=== PATIENT | female | born 1965 | race Hispanic/Latino ===

== ENCOUNTER 2017-04-28 08:43 | Outpatient (CLI) | payer OTHER ==
--- NOTE | 2017-04-28 12:18 | MMO ---
BILATERAL DIGITAL SCREENING MAMMOGRAMS: Date: 04/28/17 This patient's mammogram was interpreted with the assistance of computer-aided detection. Comparison made with exams of 02/08/16 and 01/24/15. FINDINGS: There are scattered fibroglandular densities. No suspicious masses or calcifications are seen. Occas ional benign calcifications are again noted. IMPRESSION: BIRADS 2: Benign Finding(s) Return to annual mammographic screening. POS: TERA
== END 2017-04-28 08:44 | disposition home or self-care (01) ==
LOC: MAMMO 08:43
PROVIDERS: ATTEND Student in an Organized Health Care Education/Training Program
DX: Z12.31 Encounter for screening mammogram for malignant neoplasm of breast (principal)
CPT/HCPCS: 77067; G0202

== ENCOUNTER 2018-05-08 16:01 | Outpatient (CLI) | payer OTHER | END 2018-05-08 16:02 | disposition home or self-care (01) | LOC: BICMAMMO 16:01 | PROVIDERS: ATTEND Student in an Organized Health Care Education/Training Program | DX: Z12.31 Encounter for screening mammogram for malignant neoplasm of breast (principal) | CPT/HCPCS: 77063; 77067 ==

== ENCOUNTER 2020-08-20 12:46 | Inpatient (IN) | payer OTHER ==
[2020-08-20] MEDS ORDERED: Ketamine 50 MG/ML (10ML VIAL) ONE (13:24)
[2020-08-20] MEDS ORDERED: Ondansetron PF 4 MG/2 ML Vial ONE (13:38)
--- NOTE | 2020-08-20 14:14 | RAD ---
Exam:Left ankle 3 HISTORY: Fracture. Postreduction. COMPARISON: None FINDINGS: Evaluation of fine bony detail due to overlying cast. There is a distal fibula/lateral mall eolus fracture, medial malleolus fracture and a posterior malleolus fracture. There is mild subluxation of the tibiotalar articulation. IMPRESSION: Bimalleolar fracture with subluxation. There is external fixation casting material.
[2020-08-20 14:27] LABS: #Basophils 0.1 thou/uL (0.0-0.2); #Lymphocytes 1.1 thou/uL (1.20-3.40); #Monocytes 0.6 thou/uL (0.11-0.59); #Neutrophils 7.5 thou/uL (1.40-6.50); %Basophils 0.5 % (0.0-1.0); %Eosinophils 0.5 % (0.0-10.0); %Lymphocytes 12.2 % (21.0-51.0); %Monocytes 6.1 % (0.0-10.0); %Neutrophils 80.6 % (42.0-75.0); Hemoglobin 14.8 g/dL (12.0-16.0); Mean Corpuscular HGB CONC 33.7 g/dL (32.0-36.0); Mean Corpuscular Hemoglobin 30.8 pg (27.0-31.0); Mean Corpuscular Volume 91.3 fL (78.0-98.0); Mean Platelet Volume 8.4 fL (7.4-10.4); Platelet Count 263 thou/uL (130-400); RBC Distribution Width 11.2 % (11.5-14.5); Red Blood Cell (RBC) Count 4.81 mill/uL (4.20-5.40); White Blood Cell (WBC) Count 9.3 thou/uL (4.8-10.8)
[2020-08-20 14:51] LABS: ALT (SGPT) 25 U/L (8-55); AST (SGOT) 20 U/L (5-34); Albumin 4.4 g/dL (3.5-5.0); Alkaline Phosphatase 82 U/L (40-110); Anion Gap 15 mmol/L (10-20); BUN (Urea Nitrogen) 17 mg/dL (9.8-20.1); Bilirubin, Total 0.5 mg/dL (0.2-1.2); Calc. Creatinine Clearance 0 mL/min (70-130); Calcium 9.2 mg/dL (7.8-10.44); Carbon Dioxide 28 mmol/L (22-29); Chloride 100 mmol/L (98-107); Globulin 3.4 g/dL (2.4-3.5); Glucose 118 mg/dL (70-105); Potassium 3.8 mmol/L (3.5-5.1); Protein, Total 7.8 g/dL (6.0-8.3); Sodium 139 mmol/L (136-145)
[2020-08-20] MEDS ORDERED: Ondansetron PF 4 MG/2 ML Vial IVP PRN (15:05)
[2020-08-20] MEDS ORDERED: Dextrose 5% in Water 1,000 ML IV PRN (15:05)
[2020-08-20] MEDS ORDERED: Morphine 4 MG/ML VIAL SLOW IVP PRN (15:05)
[2020-08-20] MEDS ORDERED: hydrALAZINE 20 MG/ML VIAL SLOW IVP PRN (15:05)
[2020-08-20] MEDS ORDERED: Dextrose 50% Abboject 50 ML SYRINGE SLOW IVP PRN (15:05)
[2020-08-20] MEDS ORDERED: Cyclobenzaprine 10 MG TAB PO PRN (15:09)
[2020-08-20] MEDS ORDERED: traMADol HCl 50 MG TAB PO PRN ×2 (15:09)
--- NOTE | 2020-08-20 17:03 | RAD ---
SINGLE VIEW OF THE CHEST: Comparison: 05-24-16 History: Fall with chest pain and respiratory distress. FINDINGS: Single view of the chest shows a normal sized cardiomediastinal silhouette. There is no evidence of c onsolidation, mass or pleural effusion. No acute osseous abnormality is identified. IMPRESSION: No evidence of acute cardiopulmonary disease. POS: EAA
[2020-08-20] MEDS: Acetaminophen 500 MG TAB PO SCH ×2 (17:36→23:15)
[2020-08-20] MEDS: Ketorolac Tromethamine 30 MG/ML VIAL IVP SCH ×2 (17:37→23:15)
[2020-08-20 17:43] VITALS: BMI 25.0
[2020-08-20] MEDS: Senokot S 8.6-50 MG TAB PO SCH (20:49)
[2020-08-20] MEDS: Gabapentin 300 MG CAP PO SCH (20:50)
[2020-08-20] MEDS: Famotidine/PF 20 mg/2ml Vial SLOW IVP SCH (20:50)
--- NOTE | 2020-08-20 20:59 | HP ---
TRAUMA SURGEON: Dr. Ching. CONSULTING PHYSICIAN: Dr. Karimi. HISTORY OF PRESENT ILLNESS: The patient is a 55-year-old female who presented to the emergency department after a mechanical fall where she slipped on ice. She was found to have a left bimalleolar ankle fracture dislocation which was reduced by the emergency room physician. He did report to me that the patient received ketamine and became apneic. She was bagged for about 5 minute and started breathing on her own. At the time of my evaluation, she was awake and alert. She was maintaining her airway and her oxygen saturation was above 92%. She reported that she needed to void, otherwise her pain was well controlled. The patient denies anticoagulation use and loss of consciousness. REVIEW OF SYSTEMS: All additional 10-point review of systems negative except as indicated above. PAST MEDICAL HISTORY: Hypertension and anxiety. PAST SURGICAL HISTORY: Cholecystectomy and . SOCIAL HISTORY: The patient denies tobacco, drug, and alcohol use. MEDICATIONS: The patient reports taking her medication for anxiety and hypertension, but she could not tell me their names. ALLERGIES: NO KNOWN DRUG ALLERGIES. PHYSICAL EXAMINATION: VITAL SIGNS: Temperature 98.3, pulse 80, respirations 16, oxygen saturation 100% on room air, blood pressure 171/77. GENERAL: Well-appearing middle-aged female, lying in bed with no signs of acute distress. PULMONARY: Equal chest rise and fall clear. Breath sounds bilaterally. No signs of acute respiratory distress. CARDIAC: Regular rate and rhythm. GI: Abdomen soft, nontender, nondistended. EXTREMITIES: 2+ pulses in all extremities. Gross motor and sensation intact. Left lower extremity with splint that is clean, dry, and intact. NEUROLOGIC: GCS is 15. Pupils equal, round, reactive to light bilaterally. LABORATORY FINDINGS: White count 9.3, hemoglobin 14.8, hematocrit 43.9, platelets 263. Sodium 139, potassium 3.8, chloride 100, bicarb 28, BUN 17, creatinine 0.77, glucose 119. Total bilirubin 0.5, AST 20, ALT 25, alkaline phosphatase 82. DIAGNOSTIC FINDINGS: X-ray of the left ankle demonstrates bimalleolar fracture with subluxation. There is external fixation casting material. Chest x-ray demonstrates no evidence of acute cardiopulmonary disease. ASSESSMENT: 1. Status post mechanical fall from standing. 2. Left bimalleolar ankle fracture/dislocation. 3. History of hypertension and anxiety. PLAN: The patient will be admitted to the Trauma Service. She will go to the regular surgical nursing floor. Dr. Karimi has been consulted. He plans to take the patient to the OR in the morning. She will be n.p.o. after midnight. Receive IV hydration. Repeat blood work in the morning. The patient will likely be able to go home after surgery. She does not need rehab or skilled placement. This patient was discussed with Dr. Ching before this dictation. Job ID: [id number]
[2020-08-20 22:41] LABS: SARS-CoV-2 PCR by NAA Not Detected (NotDetected)
[2020-08-21] MEDS ORDERED: Sodium Chloride 0.9% 1,000 ML IV SCH (00:01)
[2020-08-21] MEDS ORDERED: Acetaminophen 325 MG TAB ONE (04:59)
[2020-08-21] MEDS ORDERED: Ketorolac Tromethamine 30 MG/ML VIAL ONE ×3 (04:59→14:45)
[2020-08-21] MEDS ORDERED: Acetaminophen 500 MG TAB ONE ×2 (05:02→12:26)
[2020-08-21] MEDS ORDERED: hydrALAZINE 25 MG TAB ONE (06:27)
[2020-08-21] MEDS ORDERED: Midazolam HCl 2 mg/2 ml Vial ONE (06:52)
[2020-08-21] MEDS ORDERED: Fentanyl 100 MCG/2 ML VIAL ONE (06:52)
[2020-08-21] MEDS ORDERED: Famotidine/PF 20 mg/2ml Vial ONE (07:35)
[2020-08-21] MEDS ORDERED: CEFAZOLIN 2 GM in Premix Bag 1 BAG IVPB SCH (08:00)
[2020-08-21] MEDS ORDERED: PACU-Morphine 4MG/ML VIAL SLOW IVP PRN (09:07)
[2020-08-21] MEDS ORDERED: Promethazine HCl 25 MG/ML VIAL IM PRN (09:07)
[2020-08-21] MEDS ORDERED: Promethazine HCl 25 MG/ML VIAL SLOW IVP PRN (09:07)
[2020-08-21] MEDS ORDERED: EPINEPHrine 1 MG/ML AMP ONE (09:26)
[2020-08-21] MEDS ORDERED: Bupivacaine PF 0.5% 30 ML VIAL ONE (09:26)
[2020-08-21] MEDS ORDERED: HYDROcodone/Acetaminophen 10/325 mg Tablet PO PRN ×2 (11:19)
[2020-08-21] MEDS ORDERED: Fentanyl 100 MCG/2 ML VIAL SLOW IVP PRN (11:20)
[2020-08-21] MEDS ORDERED: Ondansetron PF 4 MG/2 ML Vial IVP PRN (11:21)
--- NOTE | 2020-08-21 12:13 | OP ---
DATE OF PROCEDURE: 08/21/2020 HISTORY OF PRESENT ILLNESS: Ms. Rodriguez is a 55-year-old female, who fell, twisted her left ankle, had immediate pain and deformity in the ankle. The patient was brought to the emergency room, where x-ray showed a trimalleolar fracture-dislocation. Emergency room physicians reduced the dislocation, placed the patient in a splint. She has mild numbness over the dorsum of the left foot. No other complaints elsewhere. ALLERGIES: NONE. CURRENT MEDICATIONS: 1. Hydrochlorothiazide/lisinopril. 2. Escitalopram. PAST MEDICAL HISTORY: History of hypertension and anxiety. PAST SURGICAL HISTORY: Cholecystectomy, . PHYSICAL EXAMINATION: GENERAL: The patient is a very pleasant female, alert and oriented x3, VITAL SIGNS: The patient is afebrile, vital signs are stable. HEENT: Unremarkable for age. NEUROLOGIC: Cranial nerves 2 through 12 are grossly intact. NECK: Has good range of motion without pain. THORACIC/LUMBAR SPINE: Nontender to palpation. LUNGS: Clear bilaterally. HEART: Regular rate and rhythm. ABDOMEN: Soft and nontender. Bowel sounds positive. : Not done. EXTREMITIES: Unremarkable except for the left lower extremity. The patient has swelling, bruising around the left ankle. She is able to flex and extend her toes well. She has good peripheral pulses. IMPRESSION: Status post trimalleolar fracture-dislocation of left ankle. PLAN: The patient will require open reduction and internal fixation of the left ankle. She will need to be nonweightbearing after surgery until the fractures were healed, usually approximately 8 weeks. The patient's questions were answered and agreed to the procedure. Job ID: [id number]
--- NOTE | 2020-08-21 12:13 | OP ---
DATE OF PROCEDURE: 08/21/2020 PREOPERATIVE DIAGNOSIS: Trimalleolar fracture of the left ankle. POSTOPERATIVE DIAGNOSIS: Trimalleolar fracture of the left ankle. PROCEDURE PERFORMED: Open reduction and internal fixation, trimalleolar fracture of the left ankle. ANESTHESIA: General. DESCRIPTION OF PROCEDURE: The patient was given preoperative IV antibiotics, taken to the operating room, placed in supine position. Satisfactory general anesthesia was performed. The left lower extremity was sterilely prepped and draped in usual fashion. After exsanguination, tourniquet at the left thigh was raised to 250 mmHg. A longitudinal incision was made over the lateral aspect of the ankle over the distal fibula. The oblique fracture of the distal fibular shaft was identified, reduced and then internally fixed with a 3.5 cortical screw in a lag fashion. A three-hole Synthes 2.7 distal fibular locking plate was then placed over the distal aspect of the fibula and 3.5 cortical screw was placed in the slot in the shaft. Additional five 2.7 locking screws were placed distally. Additional 3.5 cortical screw was placed in the shaft as well as another 2.7 locking screw. This was all performed under fluoroscopic visualization, which showed good reduction of the lateral malleolus and proper placement of the plate and screws. A longitudinal incision was made on the medial aspect of the ankle over the medial malleolus. There was some slight comminution on the anterior aspect of the medial malleolus. The fracture was reduced and internally fixed using two 4.0 cannulated screws. This provided good reduction of the all three of the fractures. The posterior malleolus was in good alignment once the medial and lateral malleoli were internally fixed and did not require additional fixation. Both wounds were copiously irrigated with antibiotic solution. They were closed using 0 and 2-0 Vicryl for the deeper tissue and the skin was closed with 3-0 Rapide. The two wounds were then infiltrated with a total of 30 mL 0.5% Marcaine. Sterile dressing was applied. Tourniquet was released. The patient was placed in a boot. She was awakened, extubated, and transferred to recovery room in stable condition. ESTIMATED BLOOD LOSS: Minimal. COMPLICATIONS: None. TOURNIQUET TIME: 52 minutes. Job ID: [id number]
[2020-08-21] MEDS ORDERED: Polyethylene Glycol 3350 17 GM Packet ONE (12:25)
[2020-08-21] MEDS ORDERED: Gabapentin 300 MG CAP ONE (12:26)
[2020-08-21] MEDS ORDERED: Famotidine 20 MG TAB ONE (12:26)
[2020-08-21] MEDS ORDERED: Escitalopram Oxalate 20 mg Tablet ONE (12:30)
[2020-08-21] MEDS ORDERED: Hydrochlorothiazide 25 MG TAB ONE (12:32)
[2020-08-21] MEDS: Acetaminophen 500 MG TAB PO SCH ×4 (12:40→23:20)
[2020-08-21] MEDS: Senokot S 8.6-50 MG TAB PO SCH ×2 (12:40→20:59)
[2020-08-21] MEDS: Ketorolac Tromethamine 30 MG/ML VIAL IVP SCH ×4 (12:40→23:21)
[2020-08-21] MEDS: Gabapentin 300 MG CAP PO SCH ×3 (12:40→20:58)
[2020-08-21] MEDS ORDERED: Hydrochlorothiazide 25 MG TAB PO SCH (13:00)
[2020-08-21] MEDS ORDERED: Escitalopram Oxalate 20 mg Tablet PO SCH (13:00)
[2020-08-21] MEDS ORDERED: Aspirin 81 mg Enteric Coated Tablet PO SCH (13:00)
--- NOTE | 2020-08-21 13:19 | PRG ---
DATE OF SERVICE: 08/21/2020 SUBJECTIVE: The patient is currently on the surgical floor. She has just returned from the operating room, where she underwent open reduction and internal fixation of a left subtalar dislocation with bimalleolar fracture. She tolerated this procedure well. Upon her return, she reports that her pain is controlled and this is in light of the fact that she does not have a block. She has a diet order and she will begin working with physical and occupational therapy most likely this afternoon. OBJECTIVE: VITAL SIGNS: Temperature is 99.0, heart rate 88, blood pressure 154/84, respirations 16, and oxygen saturation 98% on room air. GENERAL: The patient is resting comfortably in bed. She has just transferred from the OR bed to her surgical bed. She is awake, alert, conversant, appropriate. Hudson Coma Scale is 15. HEENT: Unremarkable. RESPIRATIONS: Nonlabored with equal rise and fall of the chest. ABDOMEN: Soft, nondistended. EXTREMITIES: Neurovascularly intact x4. Left lower extremity is immobilized in a walking boot. Clean, dry, and intact dressing in place. LABORATORY DATA AND RADIOGRAPHS: There are no labs or radiographs to review this morning. ASSESSMENT AND PLAN: 1. Status post fall from standing. 2. Status post open reduction and internal fixation of left bimalleolar ankle fracture dislocation. 3. History of hypertension and anxiety. PLAN: Plan will be to begin a diet. Resume oral pain medications. Resume her home medications. Begin physical and occupational therapy and the patient will likely be able to be discharged to home tomorrow when she is stable ambulating. The patient was evaluated this morning with Dr. Mike during rounds. Job ID: [id number]
[2020-08-21 14:41] LABS: #Eosinphils 0.1 thou/uL (0.0-0.7); #Lymphocytes 1.6 thou/uL (1.20-3.40); #Monocytes 0.7 thou/uL (0.11-0.59); %Basophils 0.6 % (0.0-1.0); %Eosinophils 1.6 % (0.0-10.0); %Lymphocytes 25.5 % (21.0-51.0); %Monocytes 10.2 % (0.0-10.0); Hemoglobin 12.7 g/dL (12.0-16.0); Mean Corpuscular HGB CONC 33.6 g/dL (32.0-36.0); Mean Corpuscular Hemoglobin 31.2 pg (27.0-31.0); Mean Corpuscular Volume 93.1 fL (78.0-98.0); Mean Platelet Volume 8.8 fL (7.4-10.4); Platelet Count 218 thou/uL (130-400); RBC Distribution Width 11.5 % (11.5-14.5); Red Blood Cell (RBC) Count 4.07 mill/uL (4.20-5.40); White Blood Cell (WBC) Count 6.4 thou/uL (4.8-10.8)
[2020-08-21] MEDS ORDERED: Lidocaine 1% PF 5 ML VIAL ONE (14:45)
[2020-08-21] MEDS ORDERED: Ondansetron PF 4 MG/2 ML Vial ONE (14:45)
[2020-08-21] MEDS ORDERED: Dexamethasone 20 MG/5 ML VIAL ONE (14:45)
[2020-08-21] MEDS ORDERED: PROPOFOL 200 MG/20 ML VIAL ONE (14:45)
[2020-08-21] MEDS: CEFAZOLIN 2 GM in Premix Bag 1 BAG IVPB SCH ×2 (14:58→21:00)
[2020-08-21] MEDS: Polyethylene Glycol 3350 17 GM Packet PO SCH (15:01)
[2020-08-21] MEDS ORDERED: Aspirin Chewable 81 MG TAB ONE (15:02)
[2020-08-21] MEDS: Famotidine/PF 20 mg/2ml Vial SLOW IVP SCH ×2 (15:13→20:58)
[2020-08-21] MEDS: Sodium Chloride 0.9% 1,000 ML IV SCH ×2 (15:14→23:01)
[2020-08-21 17:48] LABS: Anion Gap 12 mmol/L (10-20); BUN (Urea Nitrogen) 12 mg/dL (9.8-20.1); Calc. Creatinine Clearance 87 mL/min (70-130); Calcium 8.4 mg/dL (7.8-10.44); Carbon Dioxide 27 mmol/L (22-29); Chloride 100 mmol/L (98-107); Glucose 85 mg/dL (70-105); Magnesium 2.1 mg/dL (1.6-2.6); Phosphorus 4.1 mg/dL (2.3-4.7); Sodium 135 mmol/L (136-145)
--- NOTE | 2020-08-21 18:27 | RAD ---
LEFT ANKLE TWO VIEWS: HISTORY: ORIF. COMPARISON: Ankle radiograph from the prior day. FINDINGS: Satisfactory appearance of the partially threaded medial malleolar screws through the medial malleolu s. The lateral malleolar plate screw fixation as well as interfragmentary screws are in good position . IMPRESSION: Satisfactory postoperative appearance. POS: HOME
[2020-08-22] MEDS: Acetaminophen 500 MG TAB PO SCH ×3 (05:16→19:37)
[2020-08-22] MEDS: Ketorolac Tromethamine 30 MG/ML VIAL IVP SCH ×3 (05:16→20:15)
[2020-08-22 08:06] VITALS: TEMP 98.6
[2020-08-22] MEDS: Polyethylene Glycol 3350 17 GM Packet PO SCH (08:13)
[2020-08-22] MEDS: Senokot S 8.6-50 MG TAB PO SCH (08:13)
[2020-08-22] MEDS: Sodium Chloride 0.9% 1,000 ML IV SCH ×2 (08:16→20:15)
[2020-08-22] MEDS: Gabapentin 300 MG CAP PO SCH ×2 (08:18→19:35)
[2020-08-22] MEDS: Famotidine/PF 20 mg/2ml Vial SLOW IVP SCH (08:22)
[2020-08-22] MEDS ORDERED: BISOPROLOL PO SCH (09:00)
[2020-08-22] MEDS ORDERED: [UNRECOGNIZED DRUG - OTHER] PO SCH (09:00)
[2020-08-22] MEDS ORDERED: Escitalopram Oxalate 20 mg Tablet PO SCH (09:00)
[2020-08-22] MEDS ORDERED: Aspirin 81 mg Enteric Coated Tablet PO SCH (09:00)
[2020-08-22] MEDS ORDERED: Hydrochlorothiazide 25 MG TAB PO SCH (09:00)
--- NOTE | 2020-08-22 10:34 | PRG ---
DATE OF SERVICE: 08/22/2020 SUBJECTIVE: Ms. Rodriguez underwent open reduction and internal fixation of the left trimalleolar fracture dislocation of her ankle yesterday. The patient states that she has good pain control. Her main complaint is constipation. She did work with Physical Therapy and states that she was able to ambulate with a walker and has been nonweightbearing on the left lower extremity. OBJECTIVE: VITAL SIGNS: The patient has been afebrile. Blood pressure is slightly elevated, last one was 194/84. EXTREMITIES: The left foot is neurovascularly intact. PLAN: The patient appears to be stable for discharge. She has good control with her walker and has been nonweightbearing on the left lower extremity. She can be discharged today and follow up in my office in 2 weeks. Job ID: [id number]
[2020-08-22 16:19] VITALS: BP 161/72
--- NOTE | 2020-08-22 17:45 | DIS ---
DATE OF ADMISSION: 08/20/2020 DATE OF DISCHARGE: 08/22/2020 PROCEDURE PERFORMED: Open reduction and internal fixation, trimalleolar fracture of the left ankle. HOSPITAL COURSE: Ms. Rodriguez is a 55-year-old female patient. At the time the patient was brought into the emergency department, x-rays were taken and showed a left trimalleolar fracture dislocation of ankle. The patient was brought to the OR 08/21/2020. The patient tolerated the procedure well. The patient was put on pain regimen and bowel regimen. Physical therapy worked with the patient on 08/21 and 08/22. The patient was found stable to go home after discussion with Physical Therapy. On the date of discharge, the patient was only receiving Tylenol and Toradol. The patient will be discharged home on Tylenol and ibuprofen, and the patient can potato picker the script for tramadol at her [facility]. Dr. Karimi would like to follow her up in two weeks.The patient can call to schedule followup appointment. PHYSICAL EXAMINATION: The patient resting comfortably in bed with a walking boot on her left lower extremity. The patient's sensation is intact bilaterally. Moving all extremities FOLLOWUP: -Follow up with Dr. Karimi in his office in two weeks. - Take Tylenol and ibuprofen, you can alternate every 4 to 6 hours for pain. -nonweightbearing on the left lower extremity. - assistance with stairs as needed for balance Job ID: [id number] [id number]
== END 2020-08-22 19:35 | disposition home or self-care (01) | DRG 494 ==
LOC: ERS 12:46 → SURG B 14:36
PROVIDERS: ADMIT Surgery; ATTEND Surgery
PROC: 0SSGXZZ Reposition Left Ankle Joint, External Approach (ICD-10-PCS; 2020-08-20)
PROC: 0QSK04Z Reposition Left Fibula with Internal Fixation Device, Open Approach (ICD-10-PCS; principal; 2020-08-21)
DX: S82.852A Displaced trimalleolar fracture of left lower leg, initial encounter for closed fracture (principal); W19.XXXA Unspecified fall, initial encounter; Z20.822 Contact with and (suspected) exposure to COVID-19; I10 Essential (primary) hypertension; F41.9 Anxiety disorder, unspecified; K21.9 Gastro-esophageal reflux disease without esophagitis; Z90.49 Acquired absence of other specified parts of digestive tract; Z79.899 Other long term (current) drug therapy
CPT/HCPCS: 27840; 36415; 71045; 76000; 80048; 80053; 83735; 84100; 85025; 86850; 86900; 86901; 87635; 94760; 99152; 99153; C1713; C1769; J0171; J0690; J1100; J1885; J2250; J2405; J2704; J3010; S0020; S0028; U0003; U0005